=== PATIENT | male | born 1985 | race Caucasian/White ===

== ENCOUNTER 2017-07-01 18:42 | Emergency (ER) | payer OTHER ==
[~2017-07-01] VITALS: Wt 70.3 kg
[~2017-07-01 18:42] MED LIST: AMOXICILLIN,AM875 MG PO; AMOXICILLIN500 M2 PO; AMOXIL500 MG PO; BACTRIM DS 8001 TA1 PO; CEPHALEXIN500 M1 PO; DUONEB 3 MG/3 ML3 M1 INH; FLONASE ALLERG9.9 ML NAS; IBU800 MG PO; KEFLEX500 MG PO; LOMOTIL 0.025 M1 TAB PO; MEDROL DOSEPAK4 MG PO; MOTRIN800 MG PO; PREDNISONE20 M1 PO; TRAMADOL HCL50 MG PO; VIBRAMYCIN100 MG PO; VICODIN 5/500 505 MG PO; VICODIN 500 MG-1 TAB PO; ZITHROMAX250 MG PO; ZYRTEC10 MG PO; Zofran4 MG PO
[2017-07-01] MEDS ORDERED: CLINDAMYCIN HC300 MG PO (18:54)
[2017-07-01] MEDS ORDERED: ANAPROX DS550 MG PO (18:54)
== END 2017-07-01 19:05 | disposition home or self-care (01) ==
LOC: ED 18:42
DX: K08.89 Other specified disorders of teeth and supporting structures (principal)

== ENCOUNTER 2017-10-10 21:04 | Emergency (ER) | payer SELFPAY ==
[~2017-10-10] VITALS: Ht 165.1 cm; Wt 70.3 kg
[~2017-10-10 21:04] MED LIST changes: +ANAPROX DS550 MG PO; +CLINDAMYCIN HC300 MG PO
[2017-10-10] MEDS ORDERED: TESSALON PERLE100 M1 PO (22:48)
[2017-10-10] MEDS ORDERED: CLARITIN10 MG PO (22:48)
[2017-10-10] MEDS ORDERED: PROVENTIL HFA6.7 GM INH (22:48)
== END 2017-10-10 22:49 | disposition home or self-care (01) ==
LOC: ED 21:04
DX: J40 Bronchitis, not specified as acute or chronic (principal); J98.01 Acute bronchospasm; F17.200 Nicotine dependence, unspecified, uncomplicated; Z79.899 Other long term (current) drug therapy

== ENCOUNTER → 2018-01-17 | Outpatient (CLI) | payer OTHER ==
[~2018-01-17] MED LIST changes: +CLARITIN10 MG PO; +PROVENTIL HFA6.7 GM INH; +TESSALON PERLE100 M1 PO
[2018-01-17 14:46] LABS: URINE AMPHETAMINES < 1000 (1000ng/ml); URINE BARBITURATES < 200 (200ng/ml); URINE BENZODIAZEPINES < 200 (200ng/ml); URINE CANNABINOIDS (THC) > 50 (50ng/ml); URINE COCAINE < 300 (300ng/ml); URINE METHADONE < 300 (300ng/ml); URINE OPIATES < 300 (300ng/ml)
[2018-01-17 14:49] LABS: URINE PHENCYCLIDINE < 25 (25ng/ml)
== END | disposition home or self-care (01) ==
LOC: LAB 14:21
PROVIDERS: Internal Medicine
DX: F11.20 Opioid dependence, uncomplicated (principal)

== ENCOUNTER 2018-02-16 14:55 | Emergency (ER) | payer OTHER ==
[~2018-02-16] VITALS: Ht 170.1 cm; Wt 74.8 kg
[2018-02-16] MEDS ORDERED: IBU800 MG PO (16:12)
== END 2018-02-16 16:15 | disposition home or self-care (01) ==
LOC: ED 14:55
DX: M79.641 Pain in right hand (principal); Z79.899 Other long term (current) drug therapy; Z98.890 Other specified postprocedural states

== ENCOUNTER 2018-04-05 15:02 | Emergency (ER) | payer OTHER ==
[~2018-04-05] VITALS: Ht 165.1 cm; Wt 72.6 kg
[2018-04-05] MEDS ORDERED: KEFLEX500 M1 PO (15:10)
[2018-04-05] MEDS ORDERED: SEPTDS PO (15:10)
== END 2018-04-05 15:24 | disposition home or self-care (01) ==
LOC: ED 15:02
DX: L02.414 Cutaneous abscess of left upper limb (principal); Z79.899 Other long term (current) drug therapy

== ENCOUNTER → 2018-07-23 | Outpatient (CLI) | payer OTHER ==
[~2018-07-23] MED LIST changes: +CYCLOBENZAPRINE5 M3 PO; +KEFLEX500 M1 PO; +NAPROSYN500 MG PO; +ROBAXIN500 M1 PO; +SEPTDS PO; +SUBOXONE 8 MG-1 EACH SL
[2018-07-23 17:13] LABS: URINE AMPHETAMINES < 1000 (1000ng/ml); URINE BARBITURATES < 200 (200ng/ml); URINE BENZODIAZEPINES < 200 (200ng/ml); URINE CANNABINOIDS (THC) > 50 (50ng/ml); URINE COCAINE < 300 (300ng/ml); URINE METHADONE < 300 (300ng/ml); URINE OPIATES < 300 (300ng/ml)
[2018-07-23 17:17] LABS: URINE PHENCYCLIDINE < 25 (25ng/ml)
== END | disposition home or self-care (01) ==
LOC: LAB 15:28
PROVIDERS: Internal Medicine
DX: F11.20 Opioid dependence, uncomplicated (principal)

== ENCOUNTER 2018-10-11 19:02 | Emergency (ER) | payer OTHER ==
[~2018-10-11] VITALS: Ht 165.1 cm; Wt 68.0 kg
--- NOTE | ~2018-10-11 | EKG ---
[place], [place] ELECTROCARDIOGRAM REPORT NAME: ALONA JONES UNIT #: [id number] ROOM: DOCTOR: EPIPHANY DRAFT REPORT BIRTHDATE: [birth year] [facility] Test Date: 2018-10-11 Test Time: 19:27:27 Pat Name: ALONA JONES Department: ER Room: Gender: M Ophthalmology Surgical Technician: EKG.PA : 1985 Requested By: ELINA MANSFIELD Order Number: [id number] Reading MD: Leo Liu MD Measurements Intervals [place] Rate: 76 P: 78 ND: 156 QRS: 89 QRSD: 97 T: 35 QT: 368 QTc: 414 Interpretive Statements Sinus rhythm Probable left atrial enlargement Anteroseptal infarct, age indeterminate Compared to ECG 08/04/2018 18:28:34 Myocardial infarct finding now present Electronically Signed On 10-13-2018 8:11:25 PST by Leo Liu MD CM:EKGRPT:ELECTROCARDIOGRAM REPORT 26 [id number] ELINA ACUÑA APRN-ROSA EPIPHANY DRAFT REPORT ELINA MANSFIELD
[~2018-10-11 19:02] MED LIST changes: -CYCLOBENZAPRINE5 M3 PO; -SUBOXONE 8 MG-1 EACH SL
[2018-10-11 19:40] LABS: BASO # 0.1 10*3/uL (0.0-0.1); BASO % 0.9 % (0.0-1.0); EOS # 0.1 10*3/uL (0.0-0.4); EOS % 1.4 % (1.0-4.0); HEMATOCRIT 38.7 % (42.0-52.0); HEMOGLOBIN 13.2 g/dl (14.0-18.0); LYMPH # 2.4 10*3/uL (1.3-4.4); LYMPH % 37.3 % (27.0-41.0); MEAN CELL VOLUME 89.8 fl (80.0-94.0); MEAN CORPUSCULAR HGB 30.6 pg (27.0-31.0); MEAN CORPUSCULAR HGB CONC 34.1 g/dl (33.0-37.0); MEAN PLATELET VOLUME 9.2 fl (9.6-12.3); MONO # 0.6 10*3/uL (0.1-1.0); MONO % 9.3 % (3.0-9.0); NEUT # 3.3 10*3/uL (2.3-7.9); NEUT % 50.9 % (47.0-73.0); PLATELET COUNT AUTOMATED 268 10*3/uL (130-400); RED BLOOD COUNT 4.31 10*6/uL (4.50-5.90); WHITE BLOOD COUNT 6.4 10*3/uL (4.8-10.8)
[2018-10-11 19:51] LABS: ACT PARTIAL THROMBO TIME 25.3 SECONDS (20.8-31.5); INTERNATIONAL NORM RATIO 1.1 (2.0-3.5)
[2018-10-11 19:56] LABS: ALKALINE PHOSPHATASE 68 U/L (45-117); BUN 18 mg/dl (7-24); CHLORIDE 105 mmol/L (98-107); LIPASE 127 U/L (73-393); POTASSIUM 3.9 mmol/L (3.5-5.1); SGOT/AST 23 IU/L (3-35); SGPT/ALT 29 U/L (12-78); SODIUM 139 mmol/L (136-145); TOTAL PROTEIN 8.1 gm/dL (6.4-8.2)
[2018-10-11 19:57] LABS: TROPONIN I < 0.015 ng/ml (<0.045)
[2018-10-11] MEDS ORDERED: MEDROL DOSEPAK4 MG PO (20:43)
[2018-10-11] MEDS ORDERED: NAPROSYN500 MG PO (20:43)
[2018-10-11] MEDS ORDERED: CYCLOBENZAPRINE5 M3 PO (20:43)
== END 2018-10-11 21:02 | disposition home or self-care (01) ==
LOC: ED 19:02
PROVIDERS: Nurse Practitioner Family
DX: R07.1 Chest pain on breathing (principal)

== ENCOUNTER 2018-10-20 18:57 | Emergency (ER) | payer OTHER ==
[~2018-10-20] VITALS: Ht 165.1 cm; Wt 68.0 kg
--- NOTE | ~2018-10-20 | EKG ---
[place], [place] ELECTROCARDIOGRAM REPORT NAME: ALONA JONES UNIT #: [id number] ROOM: DOCTOR: EPIPHANY DRAFT REPORT BIRTHDATE: [birth year] [facility] Test Date: 2018-10-20 Test Time: 19:04:51 Pat Name: ALONA JONES Department: ER Room: Gender: M Neonatal Icu Coordinator: Uche Portillo : 1985 Requested By: SRIRAM LIZAMA Order Number: [id number] Reading MD: Veronika Bailey MD Measurements Intervals [place] Rate: 83 P: 79 IA: 149 QRS: 89 QRSD: 97 T: 20 QT: 340 QTc: 400 Interpretive Statements Sinus rhythm Compared to ECG 10/11/2018 19:27:27 Myocardial infarct finding no longer present Electronically Signed On 10-23-2018 14:03:58 PST by Veronika Bailey MD CM:EKGRPT:ELECTROCARDIOGRAM REPORT [id number] SRIRAM FERNANDES DRAFT REPORT SRIRAM LIZAMA DO
[~2018-10-20 18:57] MED LIST changes: +CYCLOBENZAPRINE5 M3 PO
[2018-10-20] MEDS ORDERED: SUBOXONE 8 MG-1 EACH SL (19:20)
[2018-10-20 19:21] LABS: BASO # 0.1 10*3/uL (0.0-0.1); BASO % 0.6 % (0.0-1.0); EOS # 0.1 10*3/uL (0.0-0.4); EOS % 1.2 % (1.0-4.0); HEMATOCRIT 42.6 % (42.0-52.0); HEMOGLOBIN 14.3 g/dl (14.0-18.0); LYMPH # 3.1 10*3/uL (1.3-4.4); MEAN CELL VOLUME 90.8 fl (80.0-94.0); MEAN CORPUSCULAR HGB 30.5 pg (27.0-31.0); MEAN CORPUSCULAR HGB CONC 33.6 g/dl (33.0-37.0); MEAN PLATELET VOLUME 8.7 fl (9.6-12.3); MONO # 0.9 10*3/uL (0.1-1.0); MONO % 10.3 % (3.0-9.0); NEUT # 4.3 10*3/uL (2.3-7.9); NEUT % 50.5 % (47.0-73.0); PLATELET COUNT AUTOMATED 312 10*3/uL (130-400); RED BLOOD COUNT 4.69 10*6/uL (4.50-5.90); RED CELL DISTRI WIDTH 13.1 % (0-14.5); WHITE BLOOD COUNT 8.5 10*3/uL (4.8-10.8)
[2018-10-20 19:31] LABS: ACT PARTIAL THROMBO TIME 21.9 SECONDS (20.8-31.5)
[2018-10-20 19:37] LABS: ALBUMIN 3.8 gm/dl (3.1-4.5); ALKALINE PHOSPHATASE 68 U/L (45-117); BUN 12 mg/dl (7-24); CHLORIDE 100 mmol/L (98-107); CREATININE 0.93 mg/dL (0.70-1.30); POTASSIUM 3.4 mmol/L (3.5-5.1); SGOT/AST 22 IU/L (3-35); SGPT/ALT 29 U/L (12-78); SODIUM 134 mmol/L (136-145); TOTAL PROTEIN 7.9 gm/dL (6.4-8.2)
[2018-10-20 19:39] LABS: TROPONIN I < 0.015 ng/ml (<0.045)
== END 2018-10-20 20:43 | disposition home or self-care (01) ==
LOC: ED 18:57
PROVIDERS: Student in an Organized Health Care Education/Training Program
DX: R07.89 Other chest pain (principal); R22.0 Localized swelling, mass and lump, head; Z79.899 Other long term (current) drug therapy

== ENCOUNTER 2018-11-02 23:10 | Emergency (ER) | payer OTHER ==
--- NOTE | ~2018-11-02 | EKG ---
[place], [place] ELECTROCARDIOGRAM REPORT NAME: ALONA JONES UNIT #: [id number] ROOM: DOCTOR: EPIPHANY DRAFT REPORT BIRTHDATE: [birth year] [facility] Test Date: 2018-11-03 Test Time: 01:51:16 Pat Name: ALONA JONES Department: Room: Gender: M Chief Of Vital Statistics: : 1985 Requested By: LISA CHARLES Order Number: [id number] Reading MD: Leo Liu MD Measurements Intervals [place] Rate: 56 P: 76 RI: 164 QRS: 92 QRSD: 98 T: 44 QT: 394 QTc: 381 Interpretive Statements Sinus rhythm Lateral infarct, acute (LAD) Compared to ECG 10/20/2018 19:04:51 Myocardial infarct finding now present Electronically Signed On 11-03-2018 6:47:27 PST by Leo Liu MD CM:EKGRPT:ELECTROCARDIOGRAM REPORT [id number] LISA FERNANDES DRAFT REPORT LISA CHARLES DO
--- NOTE | ~2018-11-02 | EKG ---
[place], [place] ELECTROCARDIOGRAM REPORT NAME: ALONA JONES UNIT #: [id number] ROOM: DOCTOR: EPIPHANY DRAFT REPORT BIRTHDATE: [birth year] [facility] Test Date: 2018-11-02 Test Time: 23:11:57 Pat Name: ALONA JONES Department: Room: Gender: M Hospitality Coordinator: : 1985 Requested By: LISA CHARLES Order Number: [id number] Reading MD: Leo Liu MD Measurements Intervals [place] Rate: 68 P: 76 AR: 151 QRS: 97 QRSD: 94 T: 39 QT: 356 QTc: 379 Interpretive Statements Sinus rhythm Borderline right axis deviation ST elev, probable normal early repol pattern Compared to ECG 10/20/2018 19:04:51 ST (T wave) deviation now present Electronically Signed On 11-03-2018 6:46:47 PST by Leo Liu MD CM:EKGRPT:ELECTROCARDIOGRAM REPORT [id number] LISA FERNANDES DRAFT REPORT LISA CHARLES DO
[~2018-11-02 23:10] MED LIST changes: +SUBOXONE 8 MG-1 EACH SL
[2018-11-02 23:31] LABS: BASO # 0.1 10*3/uL (0.0-0.1); BASO % 0.6 % (0.0-1.0); EOS # 0.2 10*3/uL (0.0-0.4); EOS % 1.5 % (1.0-4.0); HEMATOCRIT 44.5 % (42.0-52.0); HEMOGLOBIN 15.3 g/dl (14.0-18.0); LYMPH # 3.9 10*3/uL (1.3-4.4); LYMPH % 39.1 % (27.0-41.0); MEAN CELL VOLUME 90.4 fl (80.0-94.0); MEAN CORPUSCULAR HGB 31.1 pg (27.0-31.0); MEAN CORPUSCULAR HGB CONC 34.4 g/dl (33.0-37.0); MEAN PLATELET VOLUME 9.7 fl (9.6-12.3); MONO # 0.7 10*3/uL (0.1-1.0); MONO % 7.4 % (3.0-9.0); PLATELET COUNT AUTOMATED 287 10*3/uL (130-400); RED BLOOD COUNT 4.92 10*6/uL (4.50-5.90); RED CELL DISTRI WIDTH 13.2 % (0-14.5); WHITE BLOOD COUNT 9.9 10*3/uL (4.8-10.8)
[2018-11-02 23:46] LABS: ACT PARTIAL THROMBO TIME 21.6 SECONDS (20.8-31.5)
[2018-11-02 23:50] LABS: ALBUMIN 3.8 gm/dl (3.1-4.5); ALKALINE PHOSPHATASE 73 U/L (45-117); BUN 13 mg/dl (7-24); CHLORIDE 100 mmol/L (98-107); CREATININE 1.01 mg/dL (0.70-1.30); POTASSIUM 3.5 mmol/L (3.5-5.1); SGOT/AST 19 IU/L (3-35); SGPT/ALT 35 U/L (12-78); SODIUM 136 mmol/L (136-145); TOTAL PROTEIN 8.2 gm/dL (6.4-8.2); TROPONIN I < 0.015 ng/ml (<0.045)
[2018-11-03 01:25] LABS: BILIRUBIN NEGATIVE (NEGATIVE); BLOOD NEGATIVE (NEGATIVE); CLARITY CLEAR (CLEAR); COLOR YELLOW (YELLOW); GLUCOSE NEGATIVE (NEGATIVE); KETONE NEGATIVE (NEGATIVE); LEUKO ESTERASE NEGATIVE (NEGATIVE); NITRITE NEGATIVE (NEGATIVE); PH 6.5 (5.0-9.0); UROBILINOGEN 0.2 E.U./dl (0.2-1.0)
[2018-11-03 01:48] LABS: RBC 0-2 rbc/hpf (0-2)
[2019-05-02] MEDS ORDERED: PREDNISONE20 M1 PO (17:51)
[2019-05-02] MEDS ORDERED: OMEPRAZOLE D/R20 MG PO (19:34)
[2019-05-02] MEDS ORDERED: ZANTAC 7575 M1 PO (19:34)
== END 2018-11-03 03:19 | disposition home or self-care (01) ==
LOC: ED 23:10
PROVIDERS: Emergency Medicine; Student in an Organized Health Care Education/Training Program
DX: R07.89 Other chest pain (principal); M54.9 Dorsalgia, unspecified; R30.9 Painful micturition, unspecified; Z79.899 Other long term (current) drug therapy

== ENCOUNTER → 2018-12-01 | Outpatient (CLI) | payer OTHER ==
[~2018-12-01] MED LIST changes: +OMEPRAZOLE D/R20 MG PO; +ZANTAC 7575 M1 PO
[2018-12-01 15:40] LABS: ALBUMIN 3.8 gm/dl (3.1-4.5); ALKALINE PHOSPHATASE 70 U/L (45-117); BILIRUBIN, DIRECT < 0.1 mg/dL (0.0-0.2); SGOT/AST 26 IU/L (3-35); SGPT/ALT 42 U/L (12-78); TOTAL PROTEIN 7.7 gm/dL (6.4-8.2)
[2018-12-02 07:10] LABS: HEPATITIS B SURFACE AG Negative (Negative)
[2018-12-02 12:00] LABS: HEPATITIS C VIRUS ANTIBODY >11.0 s/co (0.0-0.9)
== END | disposition home or self-care (01) ==
LOC: LAB 14:55
PROVIDERS: Nurse Practitioner Family
DX: Z86.19 Personal history of other infectious and parasitic diseases (principal); Z79.899 Other long term (current) drug therapy

== ENCOUNTER → 2019-01-01 | Outpatient (CLI) | payer OTHER | END | disposition home or self-care (01) | LOC: CARD 15:00 | DX: R07.9 Chest pain, unspecified (principal); Z87.898 Personal history of other specified conditions; Z72.0 Tobacco use ==

== ENCOUNTER → 2019-03-03 | Outpatient (CLI) | payer OTHER ==
[2019-03-03 12:32] LABS: BASO # 0.1 10*3/uL (0.0-0.1); BASO % 0.9 % (0.0-1.0); EOS # 0.6 10*3/uL (0.0-0.4); HEMATOCRIT 43.1 % (42.0-52.0); HEMOGLOBIN 14.4 g/dl (14.0-18.0); LYMPH # 2.4 10*3/uL (1.3-4.4); LYMPH % 42.9 % (27.0-41.0); MEAN CELL VOLUME 93.5 fl (80.0-94.0); MEAN CORPUSCULAR HGB 31.2 pg (27.0-31.0); MEAN CORPUSCULAR HGB CONC 33.4 g/dl (33.0-37.0); MEAN PLATELET VOLUME 9.2 fl (9.6-12.3); MONO # 0.7 10*3/uL (0.1-1.0); MONO % 11.9 % (3.0-9.0); NEUT # 1.9 10*3/uL (2.3-7.9); NEUT % 33.1 % (47.0-73.0); PLATELET COUNT AUTOMATED 304 10*3/uL (130-400); RED BLOOD COUNT 4.61 10*6/uL (4.50-5.90); RED CELL DISTRI WIDTH 12.7 % (0-14.5); WHITE BLOOD COUNT 5.6 10*3/uL (4.8-10.8)
[2019-03-03 13:01] LABS: URINE AMPHETAMINES < 1000 (1000ng/ml); URINE BARBITURATES < 200 (200ng/ml); URINE BENZODIAZEPINES < 200 (200ng/ml); URINE CANNABINOIDS (THC) > 50 (50ng/ml); URINE COCAINE < 300 (300ng/ml); URINE METHADONE < 300 (300ng/ml); URINE OPIATES < 300 (300ng/ml)
[2019-03-03 13:04] LABS: URINE PHENCYCLIDINE < 25 (25ng/ml)
[2019-03-03 13:07] LABS: ALBUMIN 4.3 gm/dl (3.1-4.5); ALKALINE PHOSPHATASE 77 U/L (45-117); BUN 12 mg/dl (7-24); CHLORIDE 104 mmol/L (98-107); CREATININE 0.84 mg/dL (0.70-1.30); POTASSIUM 3.7 mmol/L (3.5-5.1); SGOT/AST 51 IU/L (3-35); SGPT/ALT 113 U/L (12-78); SODIUM 139 mmol/L (136-145); TOTAL PROTEIN 7.9 gm/dL (6.4-8.2)
[2019-03-04 08:08] LABS: HEPATITIS B SURFACE AG Negative (Negative)
[2019-03-04 18:04] LABS: HCV LOG10 6.025 (.); HEPATITIS C QNT 1060000 IU/mL (.)
== END | disposition home or self-care (01) ==
LOC: LAB 11:52
PROVIDERS: Nurse Practitioner Family
DX: B18.2 Chronic viral hepatitis C (principal)

== ENCOUNTER → 2019-05-18 | Outpatient (CLI) | payer OTHER ==
[2019-05-18 16:00] LABS: HEMATOCRIT 40.1 % (42.0-52.0); HEMOGLOBIN 13.4 g/dl (14.0-18.0); MEAN CELL VOLUME 91.8 fl (80.0-94.0); MEAN CORPUSCULAR HGB 30.7 pg (27.0-31.0); MEAN CORPUSCULAR HGB CONC 33.4 g/dl (33.0-37.0); MEAN PLATELET VOLUME 10.1 fl (9.6-12.3); RED BLOOD COUNT 4.37 10*6/uL (4.50-5.90); RED CELL DISTRI WIDTH 12.3 % (0-14.5); WHITE BLOOD COUNT 7.5 10*3/uL (4.8-10.8)
[2019-05-18 16:25] LABS: ALKALINE PHOSPHATASE 63 U/L (45-117); BUN 15 mg/dl (7-24); CHLORIDE 107 mmol/L (98-107); CREATININE 0.93 mg/dL (0.70-1.30); POTASSIUM 3.5 mmol/L (3.5-5.1); SGOT/AST 31 IU/L (3-35); SGPT/ALT 38 U/L (12-78); SODIUM 141 mmol/L (136-145); TOTAL PROTEIN 7.7 gm/dL (6.4-8.2)
== END | disposition home or self-care (01) ==
LOC: LAB 15:04
PROVIDERS: Physician Assistant
DX: B18.2 Chronic viral hepatitis C (principal); G58.9 Mononeuropathy, unspecified; R07.89 Other chest pain; R20.0 Anesthesia of skin

== ENCOUNTER → 2021-04-28 | Outpatient (CLI) | payer BC | END | disposition home or self-care (01) | LOC: US 04-25 10:30 | PROVIDERS: ATTEND Nurse Practitioner Primary Care | DX: R10.84 Generalized abdominal pain (principal) ==

== ENCOUNTER → 2021-08-02 | Outpatient (CLI) | payer BC ==
[2021-08-02 12:01] LABS: BASO # 0.1 10*3/uL (0.0-0.1); BASO % 1.3 % (0.0-1.0); EOS # 0.7 10*3/uL (0.0-0.4); LYMPH # 2.1 10*3/uL (1.3-4.4); LYMPH % 38.1 % (27.0-41.0); MEAN CELL VOLUME 94.3 fl (80.0-94.0); MEAN CORPUSCULAR HGB 30.9 pg (27.0-31.0); MEAN CORPUSCULAR HGB CONC 32.8 g/dl (33.0-37.0); MEAN PLATELET VOLUME 9.4 fl (9.6-12.3); MONO # 0.6 10*3/uL (0.1-1.0); MONO % 10.2 % (3.0-9.0); NEUT # 2.1 10*3/uL (2.3-7.9); NEUT % 38.2 % (47.0-73.0); PLATELET COUNT AUTOMATED 319 10*3/uL (130-400); RED BLOOD COUNT 4.56 10*6/uL (4.50-5.90); RED CELL DISTRI WIDTH 12.2 % (0-14.5); WHITE BLOOD COUNT 5.4 10*3/uL (4.8-10.8)
[2021-08-02 12:14] LABS: ACT PARTIAL THROMBO TIME 27.6 SECONDS (20.0-32.1)
[2021-08-02 12:19] LABS: ALBUMIN 3.8 gm/dl (3.1-4.5); BUN 11 mg/dl (7-24); CHLORIDE 104 mmol/L (98-107); CREATININE 0.93 mg/dL (0.70-1.30); LIPASE 88 U/L (73-393); POTASSIUM 4.2 mmol/L (3.5-5.1); SGPT/ALT 49 U/L (12-78); SODIUM 137 mmol/L (136-145); TOTAL PROTEIN 7.9 gm/dL (6.4-8.2)
[2021-08-02 12:21] LABS: ALKALINE PHOSPHATASE 75 U/L (45-117); SGOT/AST 33 IU/L (3-35)
[2021-08-03 08:07] LABS: HEP B CORE AB TOTAL Negative (Negative); HEP B CORE AB, IGM Negative (Negative); HEPATITIS B SURFACE AB Non Reactive (.); HEPATITIS B SURFACE AG Negative (Negative); HEPATITIS Be ANTIGEN Negative (Negative)
== END | disposition home or self-care (01) ==
LOC: LAB 11:17
PROVIDERS: ATTEND Internal Medicine Gastroenterology
DX: Z11.59 Encounter for screening for other viral diseases (principal); R07.81 Pleurodynia

== ENCOUNTER → 2022-05-14 | Outpatient (CLI) | payer BC | END | disposition home or self-care (01) | LOC: RAD 11:48 | PROVIDERS: ATTEND Family Medicine | DX: R06.2 Wheezing (principal); R05.9 Cough, unspecified; R06.02 Shortness of breath; R07.89 Other chest pain ==